=== PATIENT | female | born 1985 | race Hispanic/Latino ===

== ENCOUNTER 2018-04-02 07:56 | Outpatient (CLI) | payer OTHER ==
--- NOTE | 2018-04-02 09:56 | ULT ---
TRANSABDOMINAL AND TRANSVAGINAL PELVIC ULTRASOUND: INDICATIONS: History of polycystic ovarian syndrome. COMPARISON: None. TECHNIQUE: Saunders-scale and color Doppler with spectral Doppler images were obtained of the pelvis, via a transabd ominal and transvaginal approach. FINDINGS: The uterus measures 6.8 x 3.4 x 2.2 cm. The endometrial stripe measures 2.1 mm. The right ovary measures 2.1 x 1.7 x 1.4 cm. There is normal flow to the right ovary. No abnormal c ysts are present. The left ovary measures 2.1 x 1.8 x 1.5 cm. There is normal flow to the left ovary. There are no ab normal cysts demonstrated. No free fluid is evident. IMPRESSION: No acute sonographic abnormalities seen. POS: [facility]
== END 2018-04-02 07:57 | disposition home or self-care (01) ==
LOC: SCSULT 07:56
PROVIDERS: ATTEND Family Medicine
DX: E28.2 Polycystic ovarian syndrome (principal)
CPT/HCPCS: 76856